=== PATIENT | female | born 1985 | race Caucasian/White ===

== ENCOUNTER → 2020-04-13 15:27 | Outpatient (BNVA) | payer SELFPAY | PROVIDERS: PCP Nurse Practitioner Family; Visit Provider Emergency Medicine | DX: S89.92XA Unspecified injury of left lower leg, initial encounter (principal); X58.XXXA Exposure to other specified factors, initial encounter | CPT/HCPCS: 73562 ==

== ENCOUNTER → 2020-06-19 11:31 | Outpatient (BNVA) | payer SELFPAY | PROVIDERS: PCP Nurse Practitioner Family; Visit Provider Nurse Practitioner Family | DX: N39.0 Urinary tract infection, site not specified (principal); K29.00 Acute gastritis without bleeding; R10.9 Unspecified abdominal pain | CPT/HCPCS: 81000 ==

== ENCOUNTER 2023-03-02 15:03 | Emergency (ER) | payer OTHER, SELFPAY ==
[2023-03-02 15:10] VITALS: BMI 29.2
[2023-03-02 15:12] VITALS: BP 124/85; PULSE 89; RESP 17; TEMP 36.7; O2SAT 98
[2023-03-02 15:59] LABS: Basophils % 0.3 %; Eosinophils # 0.1 10^3/uL (0.0-0.8); Eosinophils % 0.3 %; Hematocrit 39.1 % (36-47); Lymphocytes # 1.4 10^3/uL (0.8-4.8); Lymphocytes % 9.2 %; Mean Corpuscular HGB Conc 33.2 g/dL (30-55); Mean Corpuscular Hemoglobin 28.8 pg (27-33); Mean Corpuscular Volume 86.5 fl (85-98); Monocytes # 0.6 10^3/uL (0.2-0.9); Monocytes % 4.2 %; Neutrophils # 12.62 10^3/uL (1.8-7.7); Neutrophils % 85.5 %; Nucleated Red Blood Cells % 0 %; Platelet Count 246 10^3/cmm (157-399); Red Blood Count 4.52 10^6/uL (3.85-5.65); Red Cell Distribution Width 12.1 % (12.1-15.1); White Blood Count 14.75 10^3/uL (3.29-11.43)
[2023-03-02 16:12] LABS: HCG, Serum Qual Negative (Negative)
[2023-03-02 16:17] LABS: Alanine Aminotransferase 15 U/L (0-33); Albumin Level 4.6 g/dL (3.5-5.2); Alkaline Phosphatase 78 U/L (35-105); Anion Gap 13.8 (5-19); Aspartate Amino Transferase 18 U/L (0-32); Blood Urea Nitrogen 7 mg/dL (6-20); Calcium 9.5 mg/dL (8.5-10.5); Carbon Dioxide 24 mmol/L (22-29); Chloride 102 mmol/L (98-107); Globulin 2.8 g/dL (1.3-4.6); Glomerular Filtration Rate 94.2 mL/min (90-130); Glucose 106 mg/dL (65-115); Lipase 16 U/L (13-60); Osmolality Calculated 280 mOsm/kg (285-295); Potassium 3.8 mmol/L (3.5-5.1); Sodium 136 mmol/L (136-145); Total Bilirubin 0.5 mg/dL (0.15-1.2); Total Protein 7.4 g/dL (6.6-8.7)
--- NOTE | 2023-03-02 17:14 | CTR_ITS ---
PROCEDURE INFORMATION: Exam: CT Abdomen And Pelvis With Contrast Exam date and time: 03/02/2023 5:57 PM Age: 37 years old Clinical indication: Pain; Other: Incontinance; Additional info: Abd pain TECHNIQUE: Imaging protocol: Computed tomography of the abdomen and pelvis with contrast. Radiation optimization: All CT scans at this facility use at least one of these dose optimization techniques: automated exposure control; mA and/or kV adjustment per patient size (includes targeted exams where dose is matched to clinical indication); or iterative reconstruction. Contrast material: OMNI 350; Contrast volume: 100 ml; Contrast route: INTRAVENOUS (IV); REPORTING DATA: Count of CT and Cardiac NM exams in prior 12 months: This patient has received 0 known CTs and 0 known cardiac nuclear medicine studies in the 12 months prior to the current study. COMPARISON: No relevant prior studies available. RADIATION DOSE METRICS: Total DLP (mGy-cm): 540 FINDINGS: Liver: Normal. No mass. Gallbladder and bile ducts: Normal. No calcified stones. No ductal dilation. Pancreas: Normal. No ductal dilation. Spleen: Normal. No splenomegaly. Adrenal glands: Normal. No mass. Kidneys and ureters: Normal. No hydronephrosis. Stomach and bowel: Unremarkable. No obstruction. No mucosal thickening. Appendix: No evidence of appendicitis. Intraperitoneal space: Unremarkable. No free air. No significant fluid collection. Vasculature: Unremarkable. No abdominal aortic aneurysm. Lymph nodes: Unremarkable. No enlarged lymph nodes. Urinary bladder: Unremarkable as visualized. Reproductive: Unremarkable as visualized. Bones/joints: No acute fracture. Soft tissues: Unremarkable. CT/CT abdomen pelvis w con* [id number] IMPRESSION: No acute findings.
--- NOTE | 2023-03-02 17:15 | ED_ITS ---
HPI - Abdominal Pain General: Chief Complaint: Abdominal Pain Stated Complaint: abd pain lower right/Nausea/incontinance Time Seen by Provider: 03/02/23 17:05 Source: patient Mode of arrival: ambulatory Limitations: no limitations History of Present Illness: 37-year-old female who states that she been having lower abdominal pain throughout the day. States been very sharp in nature states she also had dysuria along with increased urinary frequency. She had subjective fevers at home and had nausea denies any vomiting she is afebrile here. She denies any worsening proving factors. Associated Symptoms: Reports dysuria; Denies chills, diarrhea, fever(s), nausea and vomiting Review of Systems Const: Denies: fever(s) or chills Eyes: Denies: eye discomfort ENMT: Denies: throat pain or dental pain Card: Denies: chest pain Resp: Denies: dyspnea GI: Reports: abdominal pain; Denies: nausea, vomiting or diarrhea : Reports: dysuria and urinary frequency Musc: Denies: neck pain or back pain Skin/Breast: Denies: rash Neuro: Denies: headache(s) PFSH ED PFSH: Social History Smoking and tobacco/nicotine status: never used tobacco/nicotine Substance/Drug Use: current Other substance/drug use details: Rx for marijuana Adopted: No Physical Exam Const: COMMON NORMALS: no acute distress, patient oriented x3 and healthy appearing HENMT: COMMON NORMALS: normocephalic and atraumatic HEAD & SCALP: normocephalic and atraumatic Neck/C-Spine: COMMON NORMALS: full ROM and supple Chest: COMMONS NORMALS: normal inspection of the chest and normal palpation of entire chest wall Resp: COMMON NORMALS: normal respiratory effort, No retractions, No use of accessory muscles and clear to auscultation bilaterally AUSCULTATION: clear to auscultation bilaterally Cardio: COMMON NORMALS: regular rate, regular rhythm and No murmurs present (Cardio) RATE: regular rate RHYTHM: regular rhythm GI: COMMON NORMALS: Normal to inspection, nondistended, normoactive bowel sounds present, Soft to palpation and no masses PALPATION: Yes Soft to palpation OTHER: diffuse mild tenderness Extremity: COMMON NORMALS: normal to inspection and full ROM Neuro: COMMON NORMALS: patient oriented x3, moves all extremities and no focal motor deficits Psych: COMMON NORMALS: mental status grossly normal, Normal thought process present and cooperative THOUGHT PROCESS: Normal thought process present Skin: COMMON NORMALS: no rashes or lesions noted and no wounds GENERAL SKIN EXAM: no rashes or lesions noted Course Vital Signs: Vital signs: Vital Signs Temperature 98.0 F 03/02/23 15:12 Pulse Rate 89 03/02/23 15:12 Respiratory Rate 25 H 03/02/23 17:39 Blood Pressure 124/85 03/02/23 15:12 Pulse Oximetry 98 03/02/23 15:12 Oxygen Delivery Me thod Room Air 03/02/23 15:12 MDM - Abdominal Pain Medical Decision Making Patient presents with abdominal pain patient's blood work urinalysis CT scan here are all normal patient stable for discharge patient's follow-up PCP and return if worsening. Medical Records I reviewed the patient's medical records. Lab Data I reviewed the patient's lab results. 03/02/23 15:45 03/02/23 15:45 Labs/Radiology: Radiology Impressions Abdomen/Pelvis CT 03/02/23 17:14 IMPRESSION: No acute findings. Laboratory Results WBC 14.75 10^3/uL (3.29-11.43) H 03/02/23 15:45 RBC 4.52 10^6/uL (3.85-5.65) 03/02/23 15:45 Hgb 13.00 g/dL (11.27-16.99) 03/02/23 15:45 Hct 39.1 % (36-47) 03/02/23 15:45 MCV 86.5 fl (85-98) 03/02/23 15:45 MCH 28.8 pg (27-33) 03/02/23 15:45 MCHC 33.2 g/dL (30-55) 03/02/23 15:45 RDW 12.1 % (12.1-15.1) 03/02/23 15:45 Plt Count 246 10^3/cmm (157-399) 03/02/23 15:45 MPV 10.0 fL (7.4-10.4) 03/02/23 15:45 Neut % (Auto) 85.5 % 03/02/23 15:45 Lymph % (Auto) 9.2 % 03/02/23 15:45 Custer % (Auto) 4.2 % 03/02/23 15:45 Eos % (Auto) 0.3 % 03/02/23 15:45 Baso % (Auto) 0.3 % 03/02/23 15:45 Neut # (Auto) 12.62 10^3/uL (1.8-7.7) H 03/02/23 15:45 Lymph # (Auto) 1.4 10^3/uL (0.8-4.8) 03/02/23 15:45 Custer # (Auto) 0.6 10^3/uL (0.2-0.9) 03/02/23 15:45 Eos # (Auto) 0.1 10^3/uL (0.0-0.8) 03/02/23 15:45 Baso # (Auto) 0.0 10^3/uL (0.0-0.1) 03/02/23 15:45 Nucleated RBC % (auto) 0 % 03/02/23 15:45 Nucleated RBCs # 0.0 /100WBC 03/02/23 15:45 Sodium 136 mmol/L (136-145) 03/02/23 15:45 Potassium 3.8 mmol/L (3.5-5.1) 03/02/23 15:45 Chloride 102 mmol/L (98-107) 03/02/23 15:45 Carbon Dioxide 24 mmol/L (22-29) 03/02/23 15:45 Anion Gap 13.8 (5-19) 03/02/23 15:45 BUN 7 mg/dL (6-20) 03/02/23 15:45 Creatinine 0.7 mg/dL (0.5-0.9) 03/02/23 15:45 GFR Calculation 94.2 mL/min (90-130) 03/02/23 15:45 Glucose 106 mg/dL (65-115) 03/02/23 15:45 Calculated Osmolality 280 mOsm/kg (285-295) L 03/02/23 15:45 Calcium 9.5 mg/dL (8.5-10.5) 03/02/23 15:45 Total Bilirubin 0.5 mg/dL (0.15-1.2) 03/02/23 15:45 AST 18 U/L (0-32) 03/02/23 15:45 ALT 15 U/L (0-33) 03/02/23 15:45 Alkaline Phosphatase 78 U/L (35-105) 03/02/23 15:45 Total Protein 7.4 g/dL (6.6-8.7) 03/02/23 15:45 Albumin 4.6 g/dL (3.5-5.2) 03/02/23 15:45 Globulin 2.8 g/dL (1.3-4.6) 03/02/23 15:45 Lipase 16 U/L (13-60) 03/02/23 15:45 HCG, Qual Negative (Negative) 03/02/23 15:45 Urine Color Yellow (Yellow) 03/02/23 17:45 Urine Appearance Sl hazy (CLEAR) A 03/02/23 17:45 Urine pH 9 (5-7) H 03/02/23 17:45 Ur Specific [place] 1.015 (1.005-1.030) 03/02/23 17:45 Urine Protein Neg (Negative) 03/02/23 17:45 Urine Glucose (UA) Norm (Normal) 03/02/23 17:45 Urine Ketones 1+ (Negative) H 03/02/23 17:45 Urine Blood Neg (Negative) 03/02/23 17:45 Urine Nitrate Negative (Negative) 03/02/23 17:45 Urine Bilirubin Neg (Negative) 03/02/23 17:45 Urine Urobilinogen Norm mg/dL (Negative) 03/02/23 17:45 Ur Leukocyte Esterase Negative (Negative) 03/02/23 17:45 Urine RBC Rare /hpf (0-2) 03/02/23 17:45 Urine WBC Rare /hpf (0-5) 03/02/23 17:45 Ur Squamous Epith Cells 10-15 /hpf (0-5) H 03/02/23 17:45 Amorphous Sediment Not Reportable 03/02/23 17:45 Urine Bacteria None /hpf (NONE) 03/02/23 17:45 Urine Mucus 2+ /hpf 03/02/23 17:45 All radiology interpretation(s) finalized by discharge Discharge Plan Discharge Patient Disposition: Home Clinical Impression: Abdominal pain Condition: Stable Prescriptions: New Reglan 10 mg tablet 10 mg PO Q6H PRN (Reason: nausea and vomiting) Qty: 20 0RF No Action diphenhydramine HCl [Benadryl] 25 mg capsule 25 mg PO TID PRN prednisone 20 mg tablet 60 mg PO DAILY 9 Days Qty: 18 0RF Rx Instructions: pt to take 60mg for days 1-3, then 40mg days 4-6, then 20mg 7-9 triamcinolone acetonide 0.1 % cream 1 applic topical BID Qty: 28.4 0RF Discharge Orders: Discharge ED (Routine); Ordered 03/02/23 Ordered By: Apollo Gonzales Referrals: Alis Dewey FNP [Primary Care Provider] - 1-3 days Discharge Diet: Advance as tolerated Discharge Activity: Resume usual activity Patient Instructions: Abdominal Pain (ED) Coding Level of Care Code ED Choir Teacher for Mague Galvin
[2023-03-02] MEDS: sodium chloride 0.9% 1,000 ML 999 ML IV (17:38)
[2023-03-02 17:39] VITALS: RESP 25
[2023-03-02] MEDS: morphine 4 mg/mL SDV 1 mL IVP (17:39)
[2023-03-02] MEDS: ondansetron 2 mg/ML SDV 2 mL 4 MG IVP (17:40)
[2023-03-02] MEDS: iohexol 350 mg/mL 500 mL Btl (per mL) IV (17:55)
[2023-03-02 18:13] LABS: Urine Appearance SL Hazy (CLEAR); Urine Color Yellow (Yellow); pH Urine 9 (5-7)
[2023-03-02 18:14] LABS: Add Urine Microscopic? YES; Bilirubin Urine Neg (Negative); Blood Urine Neg (Negative); Glucose Urine UA Norm (Normal); Ketones Urine 1+ (Negative); Leukocyte Esterase Urine Negative (Negative); Nitrate Urine Negative (Negative); Protein Urine Neg (Negative); Specific Gravity, Urine 1.015 (1.005-1.030); Urobilinogen Urine Norm (Negative)
[2023-03-02 18:26] LABS: Mucus Urine 2+ /hpf; RBC Urine RARE /hpf (0-2); WBC Urine RARE /hpf (0-5)
[2023-03-02 18:27] LABS: Add Urine Culture? No
== END 2023-03-02 19:29 | disposition home or self-care (01) ==
PROVIDERS: Emergency Provider Emergency Medicine; PCP Nurse Practitioner Family
DX: R10.30 Lower abdominal pain, unspecified (principal)
CPT/HCPCS: 36415; 74177; 80053; 81001; 83690; 84703; 85025; 96361; 96374; 96375; 99285; J2270; J2405; J7030; Q9967

== ENCOUNTER → 2023-03-19 14:41 | Outpatient (BNVA) | payer OTHER, SELFPAY | PROVIDERS: PCP Nurse Practitioner Family; Visit Provider Orthopaedic Surgery | DX: M48.061 Spinal stenosis, lumbar region without neurogenic claudication (principal); M51.36 Other intervertebral disc degeneration, lumbar region | CPT/HCPCS: 72110 ==

== ENCOUNTER 2023-04-23 09:57 | Outpatient (CLI) | payer OTHER, SELFPAY ==
--- NOTE | 2023-04-23 10:15 | MR_ITS ---
WS: [id number] MRI LUMBAR SPINE NONCONTRAST TECHNIQUE: Sagittal T1, T2 and STIR imaging. Axial T1 and T2 imaging. CLINICAL INFORMATION: lumbar pain COMPARISON: None. FINDINGS: Mild lumbar curve. No acute compression. Disc bulging worse at L4-5 with endplate degenerative change s. No high-grade central canal stenosis. Retroverted and retroflexed uterus. L1-L2: Normal. L2-L3: Mild annular bulging. Mild facet arthropathy. Spinal canal and foramen are patent. L3-L4: Mild annular bulging. Mild facet arthropathy. Spinal canal and foramen are patent. L4-L5: Mild annular bulging with slight effacement of the ventral thecal sac. Mild facet arthropathy. Small bilateral foraminal protrusions with mild LEFT greater than RIGHT foraminal narrowing. L5-S1: L5 is partially sacralized. Spinal canal and foramen are patent. Mild facet arthropathy. Visualized pelvic bony structures: Normal. Paravertebral soft tissues: Normal. IMPRESSION: 1. Mild lumbar curve. No acute compression. No high-grade central canal stenosis. 2. Disc desiccation worse at L4-5 with endplate degenerative change. Mild annular bulging with sligh t impingement on the traversing LEFT L5 nerve root. 3. Small bilateral foraminal protrusions L4-5 with mild LEFT greater than RIGHT foraminal narrowing. 4. Mild facet arthropathy L3-L4 and L4-L5. 5. Retroverted and retroflexed uterus.
--- NOTE | 2023-04-23 11:00 | MR_ITS ---
WS: [id number] MRI CERVICAL SPINE NONCONTRAST TECHNIQUE: Sagittal T1, T2 and STIR imaging. Axial T2, gradient, and fiesta imaging. CLINICAL INFORMATION: lumbar pain COMPARISON: None. FINDINGS: Mild cervical curve. Straightening of the normal cervical lordosis. Incidental slightly low-lying cer ebellar tonsils. Cord signal is normal. LEFT perineural T2 hyperintense lesion at LEFT T3-4 visualize d on the sagittal imaging. This measures approximately 3.1 x 1.2 cm. Recommend further evaluation wit h gadolinium. This is indeterminate and may represent a lobulated nerve root sleeve cyst however nerv e root sheath neoplasm such as schwannoma is not excluded. C2-C3: Normal C3-C4: Mild facet arthropathy. Mild RIGHT and no significant LEFT foraminal narrowing. Spinal canal i s patent. C4-C5: Mild disc bulge with osteophytic ridging. Mild facet arthropathy. Mild RIGHT foraminal narrowi ng. C5-C6: Mild disc osteophyte complex with endplate ridging. Mild facet arthropathy. Mild RIGHT foramin al narrowing. C6-C7: Mild disc bulging with slight effacement of the ventral thecal sac. Mild LEFT and no significa nt RIGHT foraminal narrowing. C7-T1: No significant disc bulging. Spinal canal and foramen are patent. Visualized brain stem structures: Normal. Prevertebral soft tissues: Normal. IMPRESSION: 1. No high-grade central canal stenosis. Cord signal is normal. 2. LEFT perineural cystic lesion at LEFT T3-4 visualized on the sagittal imaging. This measures appr oximately 3.1 x 1.2 cm. Recommend further evaluation with MRI of thoracic spine with gadolinium. 3. Mild RIGHT C3-C4 C4-C5 and C5-C6 bony foraminal narrowing. Mild LEFT C6-7 foraminal narrowing. 4. Mild facet arthropathy C3-C4 C4-C5 and C5-C6.
== END 2023-04-23 09:58 | disposition home or self-care (01) ==
LOC: RAD 09:57
PROVIDERS: PCP Nurse Practitioner Family; Visit Provider Orthopaedic Surgery
DX: M51.36 Other intervertebral disc degeneration, lumbar region (principal); G96.191 Perineural cyst; M54.50 Low back pain, unspecified
CPT/HCPCS: 72141; 72148

== ENCOUNTER → 2023-04-30 12:56 | Outpatient (BNVA) | payer OTHER, SELFPAY | PROVIDERS: PCP Nurse Practitioner Family; Visit Provider Orthopaedic Surgery | DX: M51.36 Other intervertebral disc degeneration, lumbar region (principal); M48.061 Spinal stenosis, lumbar region without neurogenic claudication | CPT/HCPCS: 72100 ==

== ENCOUNTER 2023-05-06 12:43 | Outpatient (CLI) | payer OTHER, SELFPAY ==
--- NOTE | 2023-05-06 13:00 | MR_ITS ---
WS: [id number] MRI THORACIC SPINE WITHOUT CONTRAST TECHNIQUE: Sagittal T1, T2 and STIR imaging. Axial T2 imaging. Noncontrast imaging obtained. CLINICAL INFORMATION: thoracic COMPARISON: None. FINDINGS: Mild thoracic curve. No acute compression fractures. No high-grade central canal stenosis. Cord signa l is normal. Disc space heights and vertebral body heights are well preserved. Again seen is the previously described T2 hyperintense lesion abutting the LEFT T3-4 vertebral bodies measuring approximately 2.9 x 1.3 x 1.0 cm in the posterior mediastinum. This is unchanged since the prior examination. This has a nonaggressive appearance. No significant expansion of the neural bryan en. Mild chronic appearing smooth scalloping of the abutting vertebral bodies. Ovoid lesion is locate d posteromedial to the descending thoracic aorta and inferior to the panda. Differential considerations include radicular or meningeal cyst, foregut duplication cyst, or less li isaiah meningocele. This does not appear contiguous with the thecal sac. No expansion of the neural for amen. Nerve sheath tumor is an additional consideration. This can be further evaluated with gadoliniu m to assess enhancement. IMPRESSION: 1. T2 hyperintense ovoid paraspinal lesion abutting the LEFT T3 and T4 vertebral bodies with chronic smooth scalloping. No significant expansion of the neural foramen. This has a nonaggressive appearan ce. 2. Differential considerations include meningeal cyst, foregut duplication or bronchogenic cyst, and meningocele. Nerve sheath tumor is an additional consideration and can be further evaluated with ping olinium to ensure no enhancement. 3. No other suspicious findings.
== END 2023-05-06 12:44 | disposition home or self-care (01) ==
LOC: RAD 12:43
PROVIDERS: PCP Nurse Practitioner Family; Visit Provider Orthopaedic Surgery
DX: G95.9 Disease of spinal cord, unspecified (principal); M54.6 Pain in thoracic spine
CPT/HCPCS: 72146

== ENCOUNTER 2023-08-31 10:26 | Emergency (ER) | payer OTHER, SELFPAY ==
[2023-08-31 10:29] VITALS: BP 124/79; PULSE 62; RESP 18; TEMP 36.4; O2SAT 97; BMI 31.2
[2023-08-31 11:21] VITALS: BP 139/83; PULSE 66; RESP 18; O2SAT 100
--- NOTE | 2023-08-31 11:28 | CT_ITS ---
WS: [id number] CT LUMBAR SPINE, noncontrast. HISTORY: pain, weakness, falls TECHNIQUE: Contiguous 2.0 mm axial imaging are performed. Sagittal and coronal reformats are submitte d and reviewed. All CT scans at [facility] use at least one of these dose optimization techni ques: automated exposure control; mA and/or kV adjustment per patient size (includes targeted exams w here dose is matched to clinical indication); or iterative reconstruction. IV contrast: None DLP: 602.17 mGy.cm COMPARISON: 03/02/2023 CT, lumbar spine 03/19/2023, MRI lumbar spine 04/23/2023 Normal lumbar alignment. Reidentified is mild disc space narrowing at L4-5. There is increased sclero sis within the mid L4 vertebral body and erosions along the inferior endplate of L4. Similar changes noted on 03/02/2023 with mild progression. No acute fracture is identified. L1-2: Normal. L2-3: Normal. L3-4: Mild annular disc bulging. No stenosis. L4-5: Moderate annular disc bulging. LEFT foraminal disc protrusion. There is mild disc encroachment upon the ventral thecal sac. No paravertebral edema. Mild osteophytic ridging. Mild central, bilatera l subarticular recess and foraminal stenosis. L5-S1: Mild disc bulging with contact on the RIGHT S1 nerve root. No high-grade stenosis. Visualized retroperitoneum is normal. IMPRESSION: 1. No acute lumbar spine fracture identified. 2. L4-5: Mild narrowing of the disc space with erosive changes involving the inferior endplate of L4 . Mild central, bilateral subarticular recess and foraminal stenosis. Similar appearance to the verte bral body was noted on a CT from 03/02/2023. Most likely degenerative spondyloarthropathy. There is n o adjacent inflammation to suggest infection.
--- NOTE | 2023-08-31 11:29 | ED_ITS ---
HPI - Back Pain/Injury General: Chief Complaint: Fall Stated Complaint: back pain Time Seen by Provider: 08/31/23 11:15 Source: patient Mode of arrival: ambulatory (with help of a cane) Limitations: no limitations History of Present Illness: Patient is a 38-year-old female presents to the ED today with a complaint of lower back pain. Patient states she has a longstanding history of lower back pain. She has been seeing Dr. Christian and currently referred to see Dr. Ram in 1 week to try injections for her back pain. She has underwent MRI imaging of her back within the last 4 to 5 months. Patient states over the past few days she has had two separate minor falls and thinks she has aggravated her back. She states when she bends down her legs give out causing her to fall. She reports chronic burning to her neck/upper back/L shoulder that she states is from a known tumor that she is following up with specialists for in [place]. States this is chronic. She states her main concern is her back. She is ambulatory here with the help of her cane. Denies saddle anesthesia or bowel or bladder dysfunction. MD elicited complaint: back pain Pertinent past history: prior back pain and recent trauma Onset (ago): day(s) Timing: constant Severity: moderate Similar Symptoms Previously: Yes Quality: burning Location: lumbar spine Exacerbating factors: movement, walking and lifting Relieving factors: immobilization Context: bending and fall Associated symptoms: Reports no associated symptoms; Deny chills, dysuria, fatigue, fever(s) or hematuria Work related injury: No Review of Systems Const: Denies: fever(s), chills, body aches, fatigue or malaise Card: Denies: chest pain Resp: Denies: dyspnea : Denies: flank pain, dysuria or hematuria Musc: Reports: back pain; Denies: extremity pain, extremity swelling, joint pain or joint swelling Skin/Breast: Denies: rash Neuro: Denies: headache(s), numbness in extremities, weakness in extremities or sensory changes PFSH ED PFSH: Social History Smoking and tobacco/nicotine status: never used tobacco/nicotine Substance/Drug Use: current Other substance/drug use details: Rx for marijuana Adopted: No Physical Exam Const: COMMON NORMALS: no acute distress, average body habitus, no limitations, healthy appearing, alert and well nourished Back/Pelvis: LUMBAR SPINE/LOWER BACK: Yes lumbar spinal tenderness, No paraspinal muscle tenderness and Yes straight leg raise positive left PELVIS: Yes buttocks normal and No sciatic notch tenderness SACRUM: no tenderness COCCYX: no tenderness Extremity: COMMON NORMALS: normal to inspection, no clubbing, cyanosis or edema, no calf tenderness and no pedal edema GENERAL: Yes normal exam except as noted Neuro: COMMON NORMALS: moves all extremities, no focal motor deficits, no sensory deficits noted and gait normal SENSORIUM/ORIENTATION: Yes alert MOTOR EXAM: 5/5 motor strength present throughout Course Vital Signs: Vital signs: Vital Signs Temperature 97.6 F 08/31/23 10:29 Pulse Rate 54 L 08/31/23 12:33 Respiratory Rate 18 08/31/23 12:33 Blood Pressure 124/80 08/31/23 12:33 Pulse Oximetry 99 08/31/23 12:33 Oxygen Delivery Me thod Room Air 08/31/23 11:21 MDM - Back Pain/Injury Medical Decision Making No emergent etiology at this time. CT lumbar scan obtained and reviewed. At this time she is stable to follow-up with Dr. Ram next week and continue to follow-up with Dr. Christian as previously instructed. Return to ED precautions given. All radiology interpretation(s) finalized by discharge Discharge Plan Discharge Patient Disposition: Home Clinical Impression: Lumbar stenosis with neurogenic claudication Condition: Stable Prescriptions: No Action diphenhydramine HCl [Benadryl] 25 mg capsule 25 mg PO TID PRN prednisone 20 mg tablet 60 mg PO DAILY 9 Days Qty: 18 0RF Rx Instructions: pt to take 60mg for days 1-3, then 40mg days 4-6, then 20mg 7-9 triamcinolone acetonide 0.1 % cream 1 applic topical BID Qty: 28.4 0RF prednisone 20 mg tablet 20 mg PO DAILY Qty: 15 0RF Rx Instructions: 60MG day 1,2,3. 40MG day 4,5. 20MG day 6,7. hydrocodone-acetaminophen 5-325 mg tablet 1 tab PO Q4H PRN (Reason: pain) 5 Days Qty: 30 0RF Reglan 10 mg tablet 10 mg PO Q6H PRN (Reason: nausea and vomiting) Qty: 20 0RF Discharge Orders: Discharge ED (Routine); Ordered 08/31/23 Ordered By: Nimco Nichols Referrals: Alis Dewey FNP [Primary Care Provider] - Activity Restrictions/Additional Instructions: Continue current plan to see Dr. Ram on 09/06 as scheduled. Coding Level of Care Code ED Front Office Administrator for Mague Galvin
[2023-08-31] MEDS: dexamethasone 10 mg/mL INJ 8 MG IM (11:32)
[2023-08-31] MEDS: ketorolac 60 mg/2 mL INJ IM (11:35)
[2023-08-31] MEDS: orphenadrine 30 mg/mL Inj 2 mL 60 MG IM (11:35)
[2023-08-31 12:33] VITALS: BP 124/80; PULSE 54; RESP 18; O2SAT 99
== END 2023-08-31 12:34 | disposition home or self-care (01) ==
PROVIDERS: Emergency Provider Physician Assistant; PCP Nurse Practitioner Family
DX: M48.062 Spinal stenosis, lumbar region with neurogenic claudication (principal)
CPT/HCPCS: 72131; 96372; 99284; J1100; J1885; J2360